=== PATIENT | female | born 1965 | race Caucasian/White ===

== ENCOUNTER 2017-10-22 21:59 | Inpatient (IN) | payer MEDICAID, OTHER ==
[~2017-10-22] VITALS: Ht 157.5 cm; Wt 88.9 kg
[~2017-10-22 21:59] MED LIST: DIPHTAB95 PO; DOCU-94 PO; FLUT250M2 IN; IBUP100S11 PO
[2017-10-22] MEDS ORDERED: SODIUM CHLORIDE 0.9% 1,000 ML IV ONE (22:34)
[2017-10-22] MEDS ORDERED: KETOROLAC TROMETH 30 MG/ML 1ML VIAL IM ONE (22:45)
[2017-10-22] MEDS ORDERED: ONDANSETRON HCL 4 MG/2 ML VIAL IV ONE (22:45)
[2017-10-22] MEDS ORDERED: MORPHINE SULFATE 4 MG/ML SYR/VIAL IV ONE (22:45)
[2017-10-22 23:02] LABS: Basophils # (auto) 0.1 uL; Basophils % (auto) 0.8 % (0.0-2.0); Eosinophils # (auto) 0 uL; Eosinophils % (auto) 0.1 % (0.0-7.0); Hematocrit 45.2 % (36.0-46.0); Hemoglobin 14.7 g/dL (12.2-16.2); Lymphocytes # (auto) 2.1 uL; Lymphocytes % (auto) 12.1 % (10.0-50.0); Mean Corpuscular Hemoglobin 30.4 pg (28.0-32.0); Mean Corpuscular Hgb Conc. 32.6 g/dL (32.0-36.0); Mean Corpuscular Volume 93.3 fL (80.0-100.0); Monocytes # (auto) 1.4 uL; Monocytes % (auto) 8.2 % (0.0-12.0); Neutrophils # (auto) 13.4 uL; Neutrophils % (auto) 78.8 % (37.0-80.0); Nucleated Red Blood Cells % 0.6 %; Platelet Count (auto) 264 10^3/uL (140-450); Red Blood Cells 4.85 10^6/uL (4.0-5.20); Red Cell Distribution Width 16.8 % (11.8-14.3); White Blood Cell 17.1 10^3/uL (4.4-10.8)
[2017-10-22 23:18] LABS: INR 0.99 (0.9-1.15); Partial Thromboplastin Time 31.4 sec (22.64-33.71); Prothrombin Time 10.8 sec (9.37-12.3)
[2017-10-22 23:23] LABS: Urine Bacteria FEW /hpf (None Seen); Urine Blood 1+ /uL (Negative); Urine Mucus FEW (None Seen); Urine Specific Gravity 1.007 (1.001-1.035); Urine WBC 159 /hpf (0 - 5); Urine WBC Clumps PRESENT /hpf (None Seen)
[2017-10-22 23:29] LABS: Albumin 3.2 g/dL (3.4-5.0); BUN/Creatinine Ratio 9.5; Bilirubin, Total 1.1 mg/dL (0.2-1.0); Calcium 8.9 mg/dL (8.5-10.1); Potassium 4.8 mmol/L (3.5-5.1); Total Protein 7.7 g/dL (6.4-8.2)
[2017-10-23] MEDS ORDERED: AZTREONAM 1GM INJ 1 GM in D5W 5% 50 ML IV ONE (01:15)
[2017-10-23] MEDS ORDERED: SODIUM CHLORIDE 0.9% 500 ML IV ONE (01:15)
[2017-10-23] MEDS ORDERED: CEFTRIAXONE SODIUM 2 GM in D5W 5% 50 ML IV ONE (01:15)
[2017-10-23] MEDS ORDERED: cefTRIAXone 1GM/10ml IVPUSH 10 ML IV ONE ×2 (03:18→03:19)
[2017-10-23] MEDS ORDERED: AZTREONAM 1 GM INJ VIAL ONE (03:29)
[2017-10-23] MEDS ORDERED: MEPERIDINE HCL (25 MG/ML) 1ML VIAL IV ONE (03:30)
[2017-10-23] MEDS ORDERED: MEPERIDINE HCL (50 MG/ML) 1 ML VIAL ONE (03:34)
[2017-10-23] MEDS ORDERED: TEMAZEPAM 15 MG CAP PO PRN (04:45)
[2017-10-23] MEDS ORDERED: MEPERIDINE HCL (25 MG/ML) 1ML VIAL IM PRN (04:45)
[2017-10-23] MEDS ORDERED: ACETAMINOPHEN 325 MG TAB PO PRN (04:45)
[2017-10-23] MEDS ORDERED: TAMSULOSIN HYDROCHLORIDE 0.4 MG CAP PO ONE (05:15)
[2017-10-23] MEDS: HYDROcodone-ACET 5/325MG TAB PO PRN (08:46)
[2017-10-23] MEDS: SODIUM CHLORIDE 0.9% 1,000 ML IV SCH ×2 (08:47→20:12)
[2017-10-23] MEDS: ENOXAPARIN SOD 30 MG/0.3 ML SYRINGE SC SCH (08:48)
[2017-10-23] MEDS: PANTOPRAZOLE 40 MG TAB PO SCH (08:48)
[2017-10-23 09:03] VITALS: BP 105/79
[2017-10-23] MEDS ORDERED: MANNITOL FTV 25% 12.5 GM/50 ML 50 ML IV SCH (09:30)
[2017-10-23] MEDS: METOPROLOL TARTRATE 25 MG TAB PO SCH ×2 (10:00→21:49)
[2017-10-23 11:51] VITALS: BP 119/73
[2017-10-23] MEDS ORDERED: KETOROLAC TROMETH 30 MG/ML 1ML VIAL IV ONE (12:45)
[2017-10-23] MEDS ORDERED: HYDROmorphone HCL 2 MG TAB PO ONE (13:15)
[2017-10-23] MEDS ORDERED: LEVOFLOXACIN 500MG 100 ML IV ONE (15:00)
[2017-10-23] MEDS ORDERED: MANNITOL FTV 25% 12.5 GM/50 ML 50 ML IV ONE (15:00)
[2017-10-23 17:52] VITALS: BP 121/74
[2017-10-23] MEDS: HYDROmorphone HCL 2 MG TAB PO PRN (18:45)
[2017-10-23 20:00] VITALS: BP 121/73
[2017-10-23 21:52] VITALS: BP 121/73
[2017-10-23] MEDS ORDERED: cefTRIAXone 1GM/10ml IVPUSH 10 ML IV SCH (22:00)
[2017-10-24] MEDS: HYDROmorphone HCL 2 MG TAB PO PRN (04:44)
[2017-10-24] MEDS: ONDANSETRON HCL 4 MG/2 ML VIAL IV PRN ×2 (04:45→09:22)
[2017-10-24 05:00] VITALS: BP 118/78
[2017-10-24] MEDS: SODIUM CHLORIDE 0.9% 1,000 ML IV SCH (05:21)
[2017-10-24 06:24] LABS: Basophils # (auto) 0.1 uL; Basophils % (auto) 0.6 % (0.0-2.0); Eosinophils # (auto) 0.2 uL; Eosinophils % (auto) 2.2 % (0.0-7.0); Hematocrit 40.9 % (36.0-46.0); Hemoglobin 13.5 g/dL (12.2-16.2); Lymphocytes # (auto) 1.5 uL; Lymphocytes % (auto) 14.2 % (10.0-50.0); Mean Corpuscular Hemoglobin 31.2 pg (28.0-32.0); Mean Corpuscular Volume 94.4 fL (80.0-100.0); Monocytes # (auto) 0.7 uL; Monocytes % (auto) 7.1 % (0.0-12.0); Neutrophils # (auto) 7.8 uL; Neutrophils % (auto) 75.9 % (37.0-80.0); Nucleated Red Blood Cells % 0.2 %; Platelet Count (auto) 201 10^3/uL (140-450); Red Blood Cells 4.33 10^6/uL (4.0-5.20); Red Cell Distribution Width 16.8 % (11.8-14.3); White Blood Cell 10.3 10^3/uL (4.4-10.8)
[2017-10-24 07:11] LABS: Albumin 2.9 g/dL (3.4-5.0); BUN/Creatinine Ratio 10.3; Bilirubin, Total 0.3 mg/dL (0.2-1.0); Calcium 8.7 mg/dL (8.5-10.1); Potassium 4.8 mmol/L (3.5-5.1); Total Protein 7.4 g/dL (6.4-8.2)
[2017-10-24 09:00] VITALS: BP 121/73
[2017-10-24] MEDS: PANTOPRAZOLE 40 MG TAB PO SCH (09:21)
[2017-10-24] MEDS: ENOXAPARIN SOD 30 MG/0.3 ML SYRINGE SC SCH (09:21)
[2017-10-24] MEDS: METOPROLOL TARTRATE 25 MG TAB PO SCH (09:22)
[2017-10-24] MEDS: HYDROcodone-ACET 5/325MG TAB PO PRN (09:22)
[2017-10-24] MEDS ORDERED: SODIUM CHLORIDE 0.9% 1,000 ML IV ONE (09:45)
[2017-10-24] MEDS ORDERED: MANNITOL 20 % (20GM/100ML) 62.5 ML IV ONE (10:00)
[2017-10-24] MEDS ORDERED: LEVOFLOXACIN 500MG 100 ML IV SCH (15:00)
== END 2017-10-24 14:35 | disposition home or self-care (01) | DRG 720 ==
LOC: ER 21:59 → EDBD 21:59 → OVERFLOW 22:00 → EDBD 22:00 → WEST WING 10-23 07:58
PROVIDERS: ADMIT Nurse Practitioner; ATTEND Family Medicine
DX: A41.9 Sepsis, unspecified organism (principal); N18.4 Chronic kidney disease, stage 4 (severe); I13.0 Hypertensive heart and chronic kidney disease with heart failure and stage 1 through stage 4 chronic kidney disease, or unspecified chronic kidney disease; I50.9 Heart failure, unspecified; N12 Tubulo-interstitial nephritis, not specified as acute or chronic; Z88.5 Allergy status to narcotic agent; E86.0 Dehydration; F17.210 Nicotine dependence, cigarettes, uncomplicated; F32.9 Major depressive disorder, single episode, unspecified; K57.30 Diverticulosis of large intestine without perforation or abscess without bleeding; Z96.89 Presence of other specified functional implants; G47.00 Insomnia, unspecified; N13.9 Obstructive and reflux uropathy, unspecified; N20.2 Calculus of kidney with calculus of ureter; Z90.5 Acquired absence of kidney; Z79.899 Other long term (current) drug therapy; N39.0 Urinary tract infection, site not specified
CPT/HCPCS: 36415; 74018; 74176; 80053; 81001; 82150; 83605; 83690; 84702; 85025; 85610; 85730; 87040; 87086; 96361; 96365; 96372; 96375; J0696; J1885; J1956; J2405; J7060

== ENCOUNTER 2018-12-13 07:54 | Inpatient (IN) | payer SELFPAY ==
[~2018-12-13] VITALS: Ht 157.5 cm; Wt 80.9 kg
[2018-12-13] MEDS ORDERED: ONDANSETRON HCL 4 MG/2 ML VIAL IV ONE (08:45)
[2018-12-13] MEDS ORDERED: SODIUM CHLORIDE 0.9% 1,000 ML IV ONE ×2 (08:45→13:30)
[2018-12-13] MEDS ORDERED: KETOROLAC TROMETH 30 MG/ML 1ML VIAL ONE (08:45)
[2018-12-13] MEDS ORDERED: KETOROLAC TROMETH 30 MG/ML 1ML VIAL IV ONE (08:45)
[2018-12-13] MEDS ORDERED: ONDANSETRON HCL 4 MG/2 ML VIAL ONE (08:45)
[2018-12-13 09:07] LABS: Red Blood Cells 4.86 10^6/uL (4.0-5.20); Red Cell Distribution Width 14.1 % (11.8-14.3)
[2018-12-13 09:09] LABS: Hematocrit 45.7 % (36.0-46.0); Hemoglobin 15.2 g/dL (12.2-16.2); Mean Corpuscular Hemoglobin 31.3 pg (28.0-32.0); Mean Corpuscular Hgb Conc. 33.3 g/dL (32.0-36.0); Platelet Count (auto) 317 10^3/uL (140-450)
[2018-12-13 09:18] LABS: Basophils % (manual) 0 (0.0-2.0); Blast Cells 0; Eosinophils % (manual) 0 (0-7); Metamyelocytes % 0; Myelocytes % 0; Promyelocytes % 0; Reactive Lymphocytes 0; White Blood Cell 33.3 10^3/uL (4.4-10.8)
[2018-12-13 09:25] LABS: Albumin 3.3 g/dL (3.4-5.0); BUN/Creatinine Ratio 9.2; Potassium 4.3 mmol/L (3.5-5.1)
[2018-12-13 09:28] LABS: Bilirubin, Total 0.9 mg/dL (0.2-1.0); Total Protein 7.9 g/dL (6.4-8.2)
[2018-12-13 09:36] LABS: Band Neutrophils % (manual) 4; Lymphocytes % (manual) 1 (10.0-50.0); Monocytes % (manual) 9 (0-12)
[2018-12-13] MEDS ORDERED: TAMSULOSIN HYDROCHLORIDE 0.4 MG CAP PO ONE (11:45)
[2018-12-13] MEDS ORDERED: DEXTROSE (50%) 50ML SYRG IV PRN (12:45)
[2018-12-13] MEDS ORDERED: ACETAMINOPHEN 500 MG TAB PO PRN (12:45)
[2018-12-13] MEDS ORDERED: NITROGLYCERIN 0.4 MG SL TAB SL PRN (12:45)
[2018-12-13] MEDS ORDERED: PIPERACILLIN-TAZOB 2.25GM 50 ML IV ONE (12:45)
[2018-12-13] MEDS: ONDANSETRON HCL 4 MG/2 ML VIAL IV PRN (13:37)
[2018-12-13] MEDS: HYDROmorphone HCL 2 MG/ML VL IV PRN ×2 (13:37→21:01)
[2018-12-13] MEDS: SODIUM CHLORIDE 0.9% 1,000 ML IV SCH ×2 (13:37→20:43)
[2018-12-13] MEDS ORDERED: LIDOCAINE 2%HCL (LOCAL ANESTH.) INJ 20ML MDV ONE (13:45)
[2018-12-13] MEDS ORDERED: IODIXANOL 320MG/ML 100ML BTL IV ONE (13:46)
[2018-12-13] MEDS: LINEZOLID 600MG/300ML 300 ML IV SCH ×2 (14:00→21:01)
[2018-12-13] MEDS ORDERED: fentaNYL CITRATE 100 MCG/2 ML VL ONE (14:26)
[2018-12-13] MEDS ORDERED: MIDAZOLAM HCL 1MG/1ML-2 ML VIAL ONE (14:27)
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
[2018-12-13 16:06] VITALS: BP 99/66
[2018-12-13] MEDS: ACCU-CHEK COMFORT CURVE STRIP VI SCH (17:35)
[2018-12-13] MEDS: PIPERACILLIN-TAZOB 2.25GM 50 ML IV SCH (17:47)
[2018-12-13] MEDS: traMADol HCL 50 MG TAB PO PRN (18:43)
[2018-12-13 19:01] LABS: INR 0.97 (0.9-1.15); Prothrombin Time 10.4 sec (9.27-12.13)
--- NOTE | 2018-12-13 19:13 | NUR ---
CLOSING SHIFT NOTE ENDORSED CARE TO LEAD SOFTWARE QA ENGINEER HUMBERTO ALEJANDRO. PATIENT HAS NO S/S OF DISTRESS/SOB OR PAIN AT THIS TIME.
--- NOTE | 2018-12-13 19:30 | NUR ---
Opening Shift Note Assumed care of patient, awake and alert. Significant other at bedside. No S/S of distress/SOB. Nephrostomy tube intact. Instructed on POC and to call for assist PRN, patient verbalized understanding, call light within reach, will continue to monitor for changes Q1hr and PRN.
[2018-12-13 20:00] VITALS: BP 107/71
--- NOTE | 2018-12-13 21:00 | NUR ---
IV insertion IV access obtained, via clean sterile technique by inserting 20 gauge catheter at RW. IV secured properly. No trauma to site. Patient tolerated well. NOTE: []
[2018-12-13 21:21] LABS: Urine Bacteria MOD /hpf (None Seen); Urine Blood 2+ /uL (Negative); Urine Mucus FEW (None Seen); Urine Specific Gravity 1.016 (1.001-1.035); Urine WBC 1916 /hpf (0 - 5); Urine WBC Clumps PRESENT /hpf (None Seen)
[2018-12-13 22:00] VITALS: BP 107/71
[2018-12-14] MEDS: PIPERACILLIN-TAZOB 2.25GM 50 ML IV SCH ×4 (00:21→14:49)
[2018-12-14] MEDS: ACCU-CHEK COMFORT CURVE STRIP VI SCH ×4 (00:22→18:00)
--- NOTE | 2018-12-14 00:25 | NUR ---
IV not flowing at this time, removed aseptically with catheter intact, patient tolerated well IV insertion IV access obtained, via clean sterile technique by inserting 22 gauge catheter at RFA. IV secured properly. No trauma to site. Patient tolerated well. NOTE: []
[2018-12-14] MEDS: HYDROmorphone HCL 2 MG/ML VL IV PRN ×5 (01:01→22:39)
[2018-12-14 05:00] VITALS: BP 113/76
[2018-12-14] MEDS: SODIUM CHLORIDE 0.9% 1,000 ML IV SCH ×3 (06:18→20:43)
[2018-12-14 06:42] LABS: Basophils # (auto) 0.1 uL; Basophils % (auto) 0.2 % (0.0-2.0); Eosinophils # (auto) 0 uL; Hematocrit 38.6 % (36.0-46.0); Hemoglobin 12.6 g/dL (12.2-16.2); Lymphocytes # (auto) 1.6 uL; Lymphocytes % (auto) 5.7 % (10.0-50.0); Mean Corpuscular Hemoglobin 30.6 pg (28.0-32.0); Mean Corpuscular Hgb Conc. 32.6 g/dL (32.0-36.0); Mean Corpuscular Volume 93.9 fL (80.0-100.0); Monocytes # (auto) 1.2 uL; Monocytes % (auto) 4.2 % (0.0-12.0); Neutrophils % (auto) 89.9 % (37.0-80.0); Nucleated Red Blood Cells % 0.1 %; Platelet Count (auto) 264 10^3/uL (140-450); Red Blood Cells 4.11 10^6/uL (4.0-5.20); Red Cell Distribution Width 14.1 % (11.8-14.3); White Blood Cell 27.8 10^3/uL (4.4-10.8)
[2018-12-14 07:04] LABS: Albumin 2.6 g/dL (3.4-5.0); Calcium 8.5 mg/dL (8.5-10.1); Potassium 4.2 mmol/L (3.5-5.1)
[2018-12-14 07:07] LABS: BUN/Creatinine Ratio 10.9; Bilirubin, Total 0.6 mg/dL (0.2-1.0); Total Protein 6.5 g/dL (6.4-8.2)
[2018-12-14 09:00] VITALS: BP 118/78
[2018-12-14] MEDS: PANTOPRAZOLE 40 MG TAB PO SCH (09:52)
[2018-12-14] MEDS: LINEZOLID 600MG/300ML 300 ML IV SCH ×2 (09:53→21:14)
[2018-12-14 13:00] VITALS: BP 110/69
[2018-12-14 17:00] VITALS: BP 104/51
--- NOTE | 2018-12-14 19:30 | NUR ---
Patient in bed alert and oriented x 4, verbally coherent, able to make needs known. Patient complained of moderate pain to insertion site to left flank. Dilaudid medication given from prior shift. Provided patient with warm compress and will administer breakthrough pain medication as ordered. Plan of care discussed, patient verbalized understanding. All needs attended, will continue to monitor.
[2018-12-14] MEDS: traMADol HCL 50 MG TAB PO PRN (19:47)
[2018-12-14 20:00] VITALS: BP 111/67
--- NOTE | 2018-12-14 20:19 | NUR ---
Patient went down to smoke. Patient aware of hospital policy for AMA to smoke. ALAN made aware.
--- NOTE | 2018-12-14 20:28 | NUR ---
Patient back in room in stable condition.
[2018-12-14] MEDS: TEMAZEPAM 15 MG CAP PO PRN (21:15)
[2018-12-14 22:00] VITALS: BP 111/67
[2018-12-14] MEDS: PROMETHAZINE HCL 25 MG/ML 1ML IV PRN (22:39)
[2018-12-15] MEDS: PIPERACILLIN-TAZOB 2.25GM 50 ML IV SCH ×4 (00:08→18:31)
--- NOTE | 2018-12-15 00:30 | NUR ---
Continuation of Care Assumed care of patient from Cecilia PAUL for continuation of care. Patient lying in bed, eyes closed, respirations even and unlabored, appears asleep. No S/S of distress/SOB. Nephrostomy tube site noted to be clean, dry, intact, and patent. Instructed on POC and to call for assist PRN, patient verbalized understanding. Bed in lowest locked position, side rails up x2, call light within reach. Will continue to monitor for changes Q1hr and PRN.
[2018-12-15] MEDS: HYDROmorphone HCL 2 MG/ML VL IV PRN ×7 (03:10→23:09)
[2018-12-15 04:47] VITALS: BP 104/64
[2018-12-15] MEDS: SODIUM CHLORIDE 0.9% 1,000 ML IV SCH ×3 (05:04→20:43)
[2018-12-15] MEDS: ACCU-CHEK COMFORT CURVE STRIP VI SCH ×2 (05:50)
[2018-12-15 06:05] LABS: Basophils # (auto) 0.1 uL; Basophils % (auto) 0.4 % (0.0-2.0); Eosinophils # (auto) 0.1 uL; Hematocrit 36.4 % (36.0-46.0); Lymphocytes # (auto) 1.6 uL; Lymphocytes % (auto) 10.6 % (10.0-50.0); Mean Corpuscular Hemoglobin 30.8 pg (28.0-32.0); Mean Corpuscular Volume 93.5 fL (80.0-100.0); Monocytes # (auto) 0.8 uL; Monocytes % (auto) 5.4 % (0.0-12.0); Neutrophils # (auto) 12.6 uL; Neutrophils % (auto) 82.6 % (37.0-80.0); Nucleated Red Blood Cells % 0.1 %; Platelet Count (auto) 234 10^3/uL (140-450); Red Blood Cells 3.89 10^6/uL (4.0-5.20); Red Cell Distribution Width 14.1 % (11.8-14.3); White Blood Cell 15.3 10^3/uL (4.4-10.8)
[2018-12-15 06:23] LABS: Albumin 2.4 g/dL (3.4-5.0); Calcium 7.9 mg/dL (8.5-10.1); Potassium 3.8 mmol/L (3.5-5.1)
[2018-12-15 06:27] LABS: BUN/Creatinine Ratio 11.1; Bilirubin, Total 0.4 mg/dL (0.2-1.0); Total Protein 6.4 g/dL (6.4-8.2)
--- NOTE | 2018-12-15 06:52 | NUR ---
Closing Note Patient lying in bed, eyes closed, respirations even and unlabored, appears asleep. No s/s of distress. Bed in lowest locked position, side rails up x2, call light within reach. Care endorsed to dayshift RN.
--- NOTE | 2018-12-15 08:00 | NUR ---
Urine sent as ordered
[2018-12-15 09:00] VITALS: BP 92/59
--- NOTE | 2018-12-15 09:21 | NUR ---
Hospitalist at bedside Simpson at bedside aware of patient's status. Awaiting new orders, awaiting urine culture results at this time. Cont care
[2018-12-15] MEDS: PANTOPRAZOLE 40 MG TAB PO SCH (09:41)
[2018-12-15] MEDS: LINEZOLID 600MG/300ML 300 ML IV SCH ×2 (09:42→21:19)
--- NOTE | 2018-12-15 12:21 | NUR ---
PATIENT OUT TO SMOKE PATIENT STATES SHE'S GOING OUT TO SMOKE A CIGARETTE. ENCOURAGED TO STAY AND QUIT SMOKING BUT REFUSED. NO DISTRESS NOTED ON DEPARTURE
[2018-12-15 13:07] VITALS: BP 109/71
--- NOTE | 2018-12-15 14:19 | NUR ---
Urologist at bedside MD Gallego at bedside, aware of patient's status including pt c/o pain to nephrostomy site. MD assessed site at bedside. New orders received to change frequency of dilaudid to Q2hr prn. Per MD Gallego, pt is well known to him and patient ordered dose is "safe" and pt can tolerate it. POC discussed with patient and pt's at bedside by . Cont care
[2018-12-15] MEDS: PROMETHAZINE HCL 25 MG/ML 1ML IV PRN ×3 (15:29→23:10)
[2018-12-15 17:00] VITALS: BP 121/74
[2018-12-15 20:00] VITALS: BP 102/64
--- NOTE | 2018-12-15 20:39 | NUR ---
Opening shift note Patient in bed alert and oriented x 4, verbally coherent able to make needs known. Patient denies pain and discomfort at this time. Plan of care discussed, patient verbalized understanding. All needs attended, will continue to monitor.
[2018-12-15 22:00] VITALS: BP 102/64
[2018-12-15] MEDS: TEMAZEPAM 15 MG CAP PO PRN (23:58)
[2018-12-16] MEDS: PIPERACILLIN-TAZOB 2.25GM 50 ML IV SCH ×4 (00:52→18:13)
[2018-12-16] MEDS: PROMETHAZINE HCL 25 MG/ML 1ML IV PRN ×4 (03:20→19:55)
[2018-12-16] MEDS: HYDROmorphone HCL 2 MG/ML VL IV PRN ×8 (03:21→22:05)
[2018-12-16] MEDS: SODIUM CHLORIDE 0.9% 1,000 ML IV SCH ×3 (04:43→20:43)
[2018-12-16 05:00] VITALS: BP 98/61
[2018-12-16 07:03] LABS: Basophils # (auto) 0.1 uL; Basophils % (auto) 0.7 % (0.0-2.0); Eosinophils # (auto) 0.3 uL; Hematocrit 39.9 % (36.0-46.0); Hemoglobin 13.1 g/dL (12.2-16.2); Lymphocytes # (auto) 1.6 uL; Lymphocytes % (auto) 15.8 % (10.0-50.0); Mean Corpuscular Hemoglobin 31.1 pg (28.0-32.0); Mean Corpuscular Hgb Conc. 32.8 g/dL (32.0-36.0); Mean Corpuscular Volume 94.9 fL (80.0-100.0); Monocytes # (auto) 0.7 uL; Monocytes % (auto) 6.6 % (0.0-12.0); Neutrophils # (auto) 7.5 uL; Neutrophils % (auto) 73.9 % (37.0-80.0); Nucleated Red Blood Cells % 0.2 %; Platelet Count (auto) 265 10^3/uL (140-450); Red Blood Cells 4.21 10^6/uL (4.0-5.20); Red Cell Distribution Width 14.3 % (11.8-14.3); White Blood Cell 10.1 10^3/uL (4.4-10.8)
[2018-12-16 07:24] LABS: Albumin 2.5 g/dL (3.4-5.0); Calcium 8.1 mg/dL (8.5-10.1); Potassium 3.9 mmol/L (3.5-5.1)
[2018-12-16 07:28] LABS: BUN/Creatinine Ratio 10.6; Bilirubin, Total 0.3 mg/dL (0.2-1.0); Total Protein 6.7 g/dL (6.4-8.2)
--- NOTE | 2018-12-16 08:49 | NUR ---
Positive culture per Renay in micro, pt is positive with gram negative cocco bacilli. MD Simpson made aware, awaiting new orders at this time.
[2018-12-16 09:00] VITALS: BP 106/62
--- NOTE | 2018-12-16 09:23 | NUR ---
Hospitalist at bedside Kori Handy at bedside, aware of patient's status including pt c/o pain and medications. MD aware of positive culture. Awaiting culture and sensitivity at this time. Cont care
[2018-12-16] MEDS: PANTOPRAZOLE 40 MG TAB PO SCH (10:13)
[2018-12-16] MEDS: LINEZOLID 600MG/300ML 300 ML IV SCH ×2 (10:23→21:23)
--- NOTE | 2018-12-16 12:34 | NUR ---
Uro at bedside urologist Dr Gallego at bedside, aware of patients status including patient's c/o pain to nephrostomy site. MD aware of positive culture results. Per MD cont pain meds as ordered. Cont care
--- NOTE | 2018-12-16 12:42 | NUR ---
Patient out to smoke pt encouraged to stay and quit smoking but refused. Pt disconnected from IV and instructed her of the risks for not continuing iv meds and abx as ordered but she refused to stay and quit smoking. No distress noted on departure. walking down with patient
[2018-12-16 13:00] VITALS: BP 140/74
--- NOTE | 2018-12-16 13:06 | NUR ---
Patient back from smoking pt connected back to IV as ordered. Cont care
[2018-12-16 17:00] VITALS: BP 141/72
--- NOTE | 2018-12-16 18:57 | NUR ---
Patient care endorsed endorsed care to Cecilia knowles. Patient laying in bed with eyes closed, breathing non labored. No s/s of acute distress or sob noted. Call light within reach.
--- NOTE | 2018-12-16 19:30 | NUR ---
Opening shift note Patient asleep in bed. Patient's respiration even and unlabored, no non verbal cues to pain noted and observed. Will continue to monitor.
[2018-12-16 20:00] VITALS: BP 104/60
--- NOTE | 2018-12-16 20:08 | NUR ---
Pt off unit. AMA to smoke.
--- NOTE | 2018-12-16 20:19 | NUR ---
Patient back in room from smoking. Addendum: 12/16/18 at 2259 by Roshni Garnica RN Patient in stable condition.
--- NOTE | 2018-12-16 22:50 | NUR ---
Emptied 400 mls of pale yellow urine with sediments from nephrostomy drainage bag.
[2018-12-16 23:43] VITALS: BP 104/60
[2018-12-17] MEDS: PIPERACILLIN-TAZOB 2.25GM 50 ML IV SCH ×2 (00:16→05:15)
[2018-12-17] MEDS: HYDROmorphone HCL 2 MG/ML VL IV PRN ×7 (01:01→21:36)
--- NOTE | 2018-12-17 04:21 | NUR ---
Patient off unit. AMA to smoke.
--- NOTE | 2018-12-17 04:35 | NUR ---
Patient back to room from smoking.
[2018-12-17] MEDS: SODIUM CHLORIDE 0.9% 1,000 ML IV SCH ×3 (05:15→20:43)
[2018-12-17 05:30] VITALS: BP 119/81
--- NOTE | 2018-12-17 06:41 | NUR ---
Patient off unit with AMA to smoke.
[2018-12-17 06:49] LABS: Hematocrit 39.5 % (36.0-46.0); Hemoglobin 12.9 g/dL (12.2-16.2); Mean Corpuscular Hgb Conc. 32.8 g/dL (32.0-36.0); Mean Corpuscular Volume 94.6 fL (80.0-100.0); Platelet Count (auto) 256 10^3/uL (140-450); Red Blood Cells 4.18 10^6/uL (4.0-5.20); Red Cell Distribution Width 14.4 % (11.8-14.3); White Blood Cell 9.5 10^3/uL (4.4-10.8)
[2018-12-17 06:51] LABS: Basophils % (manual) 0 (0.0-2.0); Blast Cells 0; Metamyelocytes % 0; Myelocytes % 0; Promyelocytes % 0; Reactive Lymphocytes 0
[2018-12-17 06:55] LABS: Albumin 2.5 g/dL (3.4-5.0); BUN/Creatinine Ratio 9.6; Calcium 8.2 mg/dL (8.5-10.1)
[2018-12-17 06:57] LABS: Bilirubin, Total 0.3 mg/dL (0.2-1.0); Total Protein 6.6 g/dL (6.4-8.2)
--- NOTE | 2018-12-17 07:15 | NUR ---
Opening Note Received report from cook night RN. Patient is awake, alert and oriented x4. No signs or symptoms of distress noted at this time. Patient states left flank pain 8/10 and is requesting pain medications. Will medicate per orders. Reviewed plan of care with patient, patient verbalized understanding. Bed in low and locked position, call light within reach. Will continue to monitor Q1 hour and PRN.
[2018-12-17 07:33] LABS: Band Neutrophils % (manual) 3; Eosinophils % (manual) 5 (0-7); Lymphocytes % (manual) 17 (10.0-50.0); Monocytes % (manual) 6 (0-12)
[2018-12-17 08:38] VITALS: BP 138/87
[2018-12-17] MEDS: PANTOPRAZOLE 40 MG TAB PO SCH (09:28)
[2018-12-17] MEDS: LINEZOLID 600MG/300ML 300 ML IV SCH (09:28)
--- NOTE | 2018-12-17 10:47 | NUR ---
Dr. Deisy Simpson at bedside Dr. Deisy Simpson at bedside reviewing plan of care with patient
[2018-12-17] MEDS ORDERED: cefTRIAXone 1GM/50ML D5W 50 ML IV ONE (11:00)
--- NOTE | 2018-12-17 13:00 | NUR ---
IV REMOVED IV removed with sterile technique, catheter fully intact. Pressure dressing applied to site. Patient tolerated procedure well.
[2018-12-17 13:05] VITALS: BP 126/83
--- NOTE | 2018-12-17 13:30 | NUR ---
IV insertion IV access obtained, via clean sterile technique by inserting 22 gauge catheter in the right forearm after one attempt. IV secured properly. No trauma to site. Patient tolerated procedure well.
[2018-12-17] MEDS ORDERED: LEVOFLOXACIN 500MG 100 ML IV ONE (13:45)
--- NOTE | 2018-12-17 14:25 | NUR ---
Nutrition Assessment Notes please see attached link for complete assessment Est. Needs ABW 66 [id number] (20-23 kcal/kgBW), 66-72 gms pro (1.0-1.1 gms/kgBW). Will continue to monitor pertinent labs and reassess nutrient need prn. Addendum: 12/17/18 at [address] Amended: Links added.
[2018-12-17 17:05] VITALS: BP 115/71
--- NOTE | 2018-12-17 18:55 | NUR ---
600ml emptied from nephrostomy tube
--- NOTE | 2018-12-17 19:15 | NUR ---
Closing Note Report given to nightman RN. Patient is awake, alert and oriented x4. No signs or symptoms of distress noted at this time
--- NOTE | 2018-12-17 20:30 | NUR ---
PATIENT OUT TO SMOKE Patient off unit to smoke. AMA signed and placed in hard chart. No S/S of distress/SOB noted on departure.
--- NOTE | 2018-12-17 20:40 | NUR ---
PATIENT BACK IN BED Patient back on unit. Patient is laying in bed with symmetrical chest rise and fall. No S/S of distress/SOB noted. Bed is locked in lowest position, side rails x 2 are up, and call light is within reach.
--- NOTE | 2018-12-17 20:50 | NUR ---
IV REMOVAL IV to right lower forearm DC'd with clean sterile technique, catheter fully intact. Pressure dressing applied to site. Patient tolerated well.
--- NOTE | 2018-12-17 20:55 | NUR ---
IV Insertion IV access obtained, via clean sterile technique by inserting 22 gauge catheter at right forearm after 2 attempts. IV secured properly. IV flushing well with no resistance. Patient denies pain/burning sensation at the site. Patient educated to call if IV site starts to burn/feel painful, patient verbalized understanding.
[2018-12-17 21:00] VITALS: BP 130/74
[2018-12-17] MEDS: TEMAZEPAM 15 MG CAP PO PRN (21:06)
--- NOTE | 2018-12-18 01:01 | NUR ---
ROUNDS Patient sleeping in bed with symmetrical chest rise and fall. No S/S of distress/SOB noted. Bed is locked in lowest position, side rails x 2 are up, and call light is within reach.
[2018-12-18 02:40] VITALS: BP 112/97
[2018-12-18] MEDS: HYDROmorphone HCL 2 MG/ML VL IV PRN ×3 (02:42→11:45)
[2018-12-18 05:00] VITALS: BP 142/80
[2018-12-18] MEDS: SODIUM CHLORIDE 0.9% 1,000 ML IV SCH ×2 (05:30→09:39)
[2018-12-18 06:38] LABS: BUN/Creatinine Ratio 11.7; Calcium 8.1 mg/dL (8.5-10.1)
--- NOTE | 2018-12-18 06:56 | NUR ---
PATIENT OFF UNIT SMOKING Patient off unit smoking. AMA is in hard chart. Educated patient on smoking cessation and fall precautions, patient verbalized understanding. No S/S of distress noted upon departure.
--- NOTE | 2018-12-18 07:01 | NUR ---
NEPHROSTOMY TUBE OUTPUT Total nephrostomy tube output from 12-17-18 1900 to 12-18-18 07 is 1525 clear yellow fluid.
--- NOTE | 2018-12-18 07:13 | NUR ---
CLOSING SHIFT NOTE Endorsed patient care to Harriet Lew RN.
--- NOTE | 2018-12-18 07:20 | NUR ---
PATIENT OFF UNIT TO SMOKE SIGNED AMA IN CHART
[2018-12-18 07:21] LABS: Hematocrit 39.7 % (36.0-46.0); Mean Corpuscular Hemoglobin 30.6 pg (28.0-32.0); Mean Corpuscular Hgb Conc. 32.8 g/dL (32.0-36.0); Mean Corpuscular Volume 93.3 fL (80.0-100.0); Platelet Count (auto) 324 10^3/uL (140-450); Red Blood Cells 4.26 10^6/uL (4.0-5.20); Red Cell Distribution Width 13.9 % (11.8-14.3)
[2018-12-18 07:25] LABS: Band Neutrophils % (manual) 0; Basophils % (manual) 0 (0.0-2.0); Blast Cells 0; Metamyelocytes % 0; Myelocytes % 0; Promyelocytes % 0; Reactive Lymphocytes 0
--- NOTE | 2018-12-18 07:40 | NUR ---
PATIENT BACK ON UNIT PATIENT ALERT AND ORIENTED X4. RESPIRATIONS EVEN AND UNLABORED. PATIENT C/O NAUSEA. WILL MEDICATE PER EMAR/ M.D. ORDERS. DISCUSSED POC WITH PATIENT. PATIENT VERBALIZED UNDERSTANDING. PATIENT HAS A LEFT NEPHROSTOMY, PATENT AND DRAINING. DRESSING CLEAN, DRY, AND INTACT. BED IS IN LOWEST POSITION, SIDE RAILS UP X2, AND CALL LIGHT WITHIN REACH. WILL CONTINUE TO MONITOR Q1 HOUR AND PRN.
[2018-12-18] MEDS: ONDANSETRON HCL 4 MG/2 ML VIAL IV PRN (07:48)
[2018-12-18 08:13] VITALS: BP 126/83
[2018-12-18 08:15] LABS: Eosinophils % (manual) 3 (0-7); Lymphocytes % (manual) 14 (10.0-50.0); Monocytes % (manual) 7 (0-12)
--- NOTE | 2018-12-18 08:15 | NUR ---
PATIENT WANTS TO SMOKE EDUCATED PATIENT THAT PATIENT SHOULD STAY IN BED DUE TO RECENT C/O OF BEING DIZZY. PATIENT STATES, "I'M FINE NOW. UNHOOK ME. I'M GOING DOWN TO SMOKE. " EXPLAINED RISK FACTORS TO PATIENT. PATIENT VERBALIZED UNDERSTANDING.
--- NOTE | 2018-12-18 08:19 | NUR ---
PATIENT OFF UNIT PATIENT WENT DOWN STAIRS TO SMOKE SIGNED AMA IN CHART
[2018-12-18] MEDS ORDERED: cefTRIAXone 1GM/50ML D5W 50 ML IV SCH (09:00)
[2018-12-18] MEDS: PANTOPRAZOLE 40 MG TAB PO SCH (09:39)
[2018-12-18] MEDS ORDERED: LEVOFLOXACIN 500MG 100 ML IV SCH (10:00)
[2018-12-18] MEDS ORDERED: LEVOFLOXACIN 250MG 50 ML IV SCH (10:00)
--- NOTE | 2018-12-18 11:15 | NUR ---
PATIENT REFUSES TELE PATIENT ANTICIPATES BEING DISCHARGED TODAY. SAYS, "IM NOT WEARING THIS ANYMORE." PATIENT EDUCATED ON RISK FACTORS OF REMOVAL OF TELE BOX AND PURPOSE OF TELE MONITORING. PATIENT VERBALIZED UNDERSTANDING, CONTINUED REFUSAL
[2018-12-18 12:09] VITALS: BP 151/80
--- NOTE | 2018-12-18 12:14 | NUR ---
DR. WELSH AT BEDSIDE Rachelle DISCUSSING POC WITH PATIENT. PATIENT VERBALIZED UNDERSTANDING. Rachelle CONTACTED DR. DICKERSON FOR A NEPHROLOGY CONSULT DEPENDING ON DR. DICKERSON'S RECOMMENDATION, PATIENT MAY BE DISCHARGED TODAY WILL AWAIT Rachelle CONSULT Addendum: 12/18/18 at 1305 by Harriet Grayson RN Rachelle MADE AWARE OF TELE REMOVAL/ REFUSAL
[2018-12-18 12:27] VITALS: BP 151/80
[2018-12-18] MEDS ORDERED: CEFTRIAXONE SODIUM 2 GM in D5W 5% 50 ML IV ONE (12:30)
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
--- NOTE | 2018-12-18 12:40 | NUR ---
DR. JAYLA Lopez HAS CLEARED PATIENT FOR DISCHARGE PATIENT ENCOURAGED TO FOLLOW UP WITH Rachelle IN TWO WEEKS
--- NOTE | 2018-12-18 12:41 | NUR ---
CALLED PHARMACY ROCEPHIN 2 GRAMS TO BE GIVEN TO PATIENT BEFORE D/C PHARMACY MUST SEND MEDICATION UP CALLED AND SPOKE TO BETZY. UPDATED BETZY ON PATIENT STATUS BETZY STATED MEDICATION WOULD BE SENT UP SOON POSSIBLE
[2018-12-18] MEDS: SODIUM BICARBONATE 650 MG TAB PO SCH ×2 (12:45→14:00)
--- NOTE | 2018-12-18 15:45 | NUR ---
PRESCRIPTIONS TAKEN TO [facility] PATIENT INSTRUCTED TO INDUSTRIAL ANALYST PRESCRIPTIONS UPON DISCHARGE PATIENT VERBALIZED UNDERSTANDING
--- NOTE | 2018-12-18 15:48 | NUR ---
DISCHARGE Discharge instructions given as ordered. Encourage to follow up with PCP as instructed and to make an appointment with Dr. Gallego. Appointment with Dr. Mendez made. All questions and concerns addressed. Patient verbalized understanding. IV removed with catheter intact, pressure dressing applied. Telemetry unit returned to ALAN. Patient taken to vehicle via wheelchair with all personal belongings, accompanied by staff and family member. No distress noted at time of departure.
== END 2018-12-18 16:00 | disposition home or self-care (01) | DRG 872 ==
LOC: EDBD 07:54 → ER 07:54 → TELE 12:54 → TELE-EAST 17:07
PROVIDERS: ADMIT Internal Medicine; ATTEND Family Medicine
PROC: 0T9130Z Drainage of Left Kidney with Drainage Device, Percutaneous Approach (ICD-10-PCS; principal; 2018-12-13)
PROC: BT1F1ZZ Fluoroscopy of Left Kidney, Ureter and Bladder using Low Osmolar Contrast (ICD-10-PCS; 2018-12-13)
DX: A41.01 Sepsis due to Methicillin susceptible Staphylococcus aureus (principal); N17.9 Acute kidney failure, unspecified; N13.6 Pyonephrosis; I42.2 Other hypertrophic cardiomyopathy; E87.2 Acidosis; I13.0 Hypertensive heart and chronic kidney disease with heart failure and stage 1 through stage 4 chronic kidney disease, or unspecified chronic kidney disease; I42.1 Obstructive hypertrophic cardiomyopathy; N18.9 Chronic kidney disease, unspecified; K57.90 Diverticulosis of intestine, part unspecified, without perforation or abscess without bleeding; E83.59 Other disorders of calcium metabolism; I50.9 Heart failure, unspecified; N29 Other disorders of kidney and ureter in diseases classified elsewhere; J44.9 Chronic obstructive pulmonary disease, unspecified; E11.22 Type 2 diabetes mellitus with diabetic chronic kidney disease; F17.210 Nicotine dependence, cigarettes, uncomplicated; F32.9 Major depressive disorder, single episode, unspecified; Z82.49 Family history of ischemic heart disease and other diseases of the circulatory system; Z87.442 Personal history of urinary calculi; Z90.5 Acquired absence of kidney; Z91.19 Patient's noncompliance with other medical treatment and regimen; Z93.6 Other artificial openings of urinary tract status; Z88.6 Allergy status to analgesic agent
CPT/HCPCS: 36415; 71045; 74176; 74425; 76942; 80048; 80053; 81001; 82962; 83036; 85007; 85025; 85027; 85610; 85652; 87040; 87086; 87088; 87186; 93005; 96361; 96374; 96375; 99152; A6257; C1729; G0378; J0696; J1885; J1956; J2250; J2405; J2543; J7060; Q9967

== ENCOUNTER 2020-12-03 16:00 | Inpatient (IN) | payer MEDICAID ==
[~2020-12-03] VITALS: Ht 165.1 cm; Wt 87.6 kg
[2020-12-03] MEDS ORDERED: cefTRIAXone 1GM/50ML D5W 50 ML IV ONE (16:15)
[2020-12-03] MEDS ORDERED: SODIUM CHLORIDE 0.9% 1,000 ML IV ONE (16:15)
[2020-12-03 17:16] LABS: Eosinophils # (auto) 0 10 ^3/uL (0-0.8); Mean Corpuscular Volume 91.2 fL (80.0-100.0); Monocytes # (auto) 2.1 10 ^3/uL (0-1.3); Neutrophils # (auto) 16.8 10 ^3/uL (1.6-8.6); Nucleated Red Blood Cells % 0.6 %
[2020-12-03 17:20] LABS: Urine Bacteria NONE SEEN /hpf (None Seen); Urine Blood 1+ /uL (Negative); Urine Specific Gravity 1.006 (1.001-1.035); Urine WBC 110 /hpf (0 - 5)
[2020-12-03 17:24] LABS: Basophils # (auto) 0 10 ^3/uL (0-0.2); Basophils % (auto) 0.2 % (0.0-2.0); Eosinophils % (auto) 0.1 % (0.0-7.0); Hematocrit 39.9 % (36.0-46.0); Lymphocytes # (auto) 1.8 10 ^3/uL (0.4-5.4); Lymphocytes % (auto) 8.8 % (10.0-50.0); Mean Corpuscular Hemoglobin 29.6 pg (28.0-32.0); Mean Corpuscular Hgb Conc. 32.4 g/dL (32.0-36.0); Monocytes % (auto) 10.2 % (0.0-12.0); Neutrophils % (auto) 80.7 % (37.0-80.0); Red Blood Cells 4.38 10^6/uL (4.0-5.20); Red Cell Distribution Width 17.9 % (11.8-14.3); White Blood Cell 20.8 10^3/uL (4.4-10.8)
[2020-12-03] MEDS ORDERED: ACETAMINOPHEN 500 MG TAB PO ONE (17:30)
[2020-12-03 17:33] LABS: Alanine Aminotransferase 25 U/L (13-56); Albumin 3.1 g/dL (3.4-5.0); Anion Gap 10 (5-15); Aspartate Aminotransferase 15 U/L (15-37); BUN/Creatinine Ratio 10.1; Blood Urea Nitrogen 30 mg/dL (7-18); Calcium 8.6 mg/dL (8.5-10.1); Carbon Dioxide 15 mmol/L (21-32); Chloride 109 mmol/L (98-107); GFR African American 21 mL/min; GFR Non-African American 18 mL/min; Glucose 88 mg/dL (74-106); Sodium 134 mmol/L (136-145)
[2020-12-03 17:37] LABS: Alkaline Phosphatase 154 U/L (45-117); Bilirubin, Total 0.6 mg/dL (0.2-1.0); Total Protein 8.4 g/dL (6.4-8.2)
[2020-12-03] MEDS ORDERED: MEPERIDINE HCL (50 MG/ML) 1 ML VIAL IV PRN (18:15)
[2020-12-03] MEDS ORDERED: MORPHINE SULFATE INJECTION 2 MG/ML SYRG IV PRN ×2 (18:15→18:45)
[2020-12-03] MEDS ORDERED: ONDANSETRON HCL 4 MG/2 ML VIAL IV PRN (18:15)
[2020-12-03] MEDS ORDERED: NITROGLYCERIN 0.4 MG SL TAB SL PRN (18:15)
[2020-12-03] MEDS ORDERED: MEPERIDINE HCL (25 MG/ML) 1ML VIAL IV PRN (18:15)
[2020-12-03] MEDS ORDERED: MORPHINE SULFATE 4 MG/ML SYR/VIAL IV PRN (18:45)
[2020-12-03] MEDS ORDERED: amLODIPine BESYLATE 5 MG TAB PO ONE (21:15)
[2020-12-03] MEDS ORDERED: SODIUM CHLORIDE 0.9% 1,000 ML IV SCH (21:15)
[2020-12-03] MEDS ORDERED: hydrALAZINE HCL 20 MG/ML VL IV PRN (21:15)
[2020-12-03] MEDS ORDERED: DOCUSATE SOD 100 MG CAP PO PRN (21:15)
[2020-12-03] MEDS ORDERED: TEMAZEPAM 15 MG CAP PO PRN (21:15)
[2020-12-03 22:00] VITALS: BP 119/69
[2020-12-03] MEDS ORDERED: FAMOTIDINE 20 MG TAB PO SCH (22:00)
[2020-12-03 22:55] VITALS: BP 119/69
[2020-12-04] MEDS: ACETAMINOPHEN 325 MG TAB PO PRN ×2 (04:36→21:23)
[2020-12-04 05:00] VITALS: BP 153/89
[2020-12-04 05:44] LABS: Basophils # (auto) 0.1 10 ^3/uL (0-0.2); Basophils % (auto) 0.5 % (0.0-2.0); Eosinophils # (auto) 0 10 ^3/uL (0-0.8); Eosinophils % (auto) 0.1 % (0.0-7.0); Hematocrit 39.5 % (36.0-46.0); Hemoglobin 13.1 g/dL (12.2-16.2); Lymphocytes # (auto) 1.3 10 ^3/uL (0.4-5.4); Lymphocytes % (auto) 5.5 % (10.0-50.0); Mean Corpuscular Hemoglobin 30.2 pg (28.0-32.0); Mean Corpuscular Hgb Conc. 33.1 g/dL (32.0-36.0); Monocytes # (auto) 2.3 10 ^3/uL (0-1.3); Monocytes % (auto) 10.1 % (0.0-12.0); Neutrophils # (auto) 19.4 10 ^3/uL (1.6-8.6); Neutrophils % (auto) 83.8 % (37.0-80.0); Nucleated Red Blood Cells % 0.5 %; Red Blood Cells 4.34 10^6/uL (4.0-5.20); White Blood Cell 23.1 10^3/uL (4.4-10.8)
[2020-12-04 06:05] LABS: Potassium 4.2 mmol/L (3.5-5.1)
[2020-12-04 06:13] LABS: BUN/Creatinine Ratio 9.8; Bilirubin, Total 0.6 mg/dL (0.2-1.0); Calcium 8.8 mg/dL (8.5-10.1); Magnesium 2.6 mg/dL (1.6-2.6); Total Protein 8.4 g/dL (6.4-8.2)
[2020-12-04 09:00] VITALS: BP 118/77
[2020-12-04] MEDS ORDERED: cefTRIAXone 1GM/50ML D5W 50 ML IV SCH (09:00)
[2020-12-04] MEDS: MEROPENEM 500MG IVPB 50 ML IV SCH ×2 (09:08→21:24)
[2020-12-04] MEDS: amLODIPine BESYLATE 5 MG TAB PO SCH (09:09)
[2020-12-04] MEDS: FAMOTIDINE 20 MG TAB PO SCH (09:09)
[2020-12-04 13:00] VITALS: BP 139/74
[2020-12-04] MEDS: KETOROLAC TROMETH 30 MG/ML 1ML VIAL IV ONE ×2 (13:52→14:15)
[2020-12-04 17:14] VITALS: BP 108/62
[2020-12-04] MEDS: SODIUM BICARBONATE 50ML VIAL 75 ML in SOD CHL 0.45% 1,000 ML IV SCH (19:48)
[2020-12-04 20:00] VITALS: BP 118/77
[2020-12-04] MEDS: MORPHINE SULFATE 4 MG/ML SYR/VIAL IV PRN (21:24)
[2020-12-04] MEDS: SODIUM BICARBONATE 650 MG TAB PO SCH (21:24)
[2020-12-04 22:00] VITALS: BP 109/70
[2020-12-05 05:00] VITALS: BP 102/64
[2020-12-05 08:34] VITALS: BP 104/72
[2020-12-05] MEDS: FAMOTIDINE 20 MG TAB PO SCH (08:51)
[2020-12-05] MEDS: amLODIPine BESYLATE 5 MG TAB PO SCH (08:54)
[2020-12-05] MEDS: SODIUM BICARBONATE 650 MG TAB PO SCH ×2 (08:54→21:09)
[2020-12-05] MEDS: MEROPENEM 500MG IVPB 50 ML IV SCH ×2 (08:55→21:08)
[2020-12-05] MEDS: ACETAMINOPHEN 325 MG TAB PO PRN (08:55)
[2020-12-05] MEDS: MORPHINE SULFATE 4 MG/ML SYR/VIAL IV PRN ×2 (08:55→19:57)
[2020-12-05 12:34] VITALS: BP 115/72
[2020-12-05 16:34] VITALS: BP 107/75
[2020-12-05] MEDS: SODIUM BICARBONATE 50ML VIAL 75 ML in SOD CHL 0.45% 1,000 ML IV SCH (19:35)
[2020-12-05 22:00] VITALS: BP 96/60
[2020-12-06] MEDS: MORPHINE SULFATE 4 MG/ML SYR/VIAL IV PRN ×4 (02:24→22:03)
[2020-12-06 05:00] VITALS: BP 103/61
[2020-12-06 07:00] LABS: Calcium 8.3 mg/dL (8.5-10.1); Potassium 3.5 mmol/L (3.5-5.1)
[2020-12-06 08:30] VITALS: BP 106/75
[2020-12-06] MEDS: ACETAMINOPHEN 325 MG TAB PO PRN ×2 (08:59→15:22)
[2020-12-06] MEDS: MEROPENEM 500MG IVPB 50 ML IV SCH ×2 (09:00→22:02)
[2020-12-06] MEDS: SODIUM BICARBONATE 650 MG TAB PO SCH ×2 (09:00→22:02)
[2020-12-06] MEDS: amLODIPine BESYLATE 5 MG TAB PO SCH (09:01)
[2020-12-06] MEDS: FAMOTIDINE 20 MG TAB PO SCH (09:01)
[2020-12-06] MEDS: SODIUM BICARBONATE 50ML VIAL 75 ML in SOD CHL 0.45% 1,000 ML IV SCH (12:45)
[2020-12-06 12:52] LABS: Basophils # (auto) 0.2 10 ^3/uL (0-0.2); Basophils % (auto) 1.5 % (0.0-2.0); Eosinophils # (auto) 0.3 10 ^3/uL (0-0.8); Eosinophils % (auto) 2.4 % (0.0-7.0); Hematocrit 33.3 % (36.0-46.0); Hemoglobin 10.9 g/dL (12.2-16.2); Lymphocytes % (auto) 16.3 % (10.0-50.0); Mean Corpuscular Hemoglobin 29.7 pg (28.0-32.0); Mean Corpuscular Hgb Conc. 32.6 g/dL (32.0-36.0); Mean Corpuscular Volume 91.2 fL (80.0-100.0); Monocytes # (auto) 0.9 10 ^3/uL (0-1.3); Monocytes % (auto) 7.2 % (0.0-12.0); Neutrophils # (auto) 8.9 10 ^3/uL (1.6-8.6); Neutrophils % (auto) 72.6 % (37.0-80.0); Nucleated Red Blood Cells % 0.1 %; Red Blood Cells 3.65 10^6/uL (4.0-5.20); Red Cell Distribution Width 18.3 % (11.8-14.3); White Blood Cell 12.2 10^3/uL (4.4-10.8)
[2020-12-06 16:44] VITALS: BP 109/79
[2020-12-06 22:00] VITALS: BP 119/71
[2020-12-07 05:00] VITALS: BP 125/80
[2020-12-07] MEDS: MORPHINE SULFATE 4 MG/ML SYR/VIAL IV PRN ×3 (05:04→20:33)
[2020-12-07 09:00] VITALS: BP 105/67
[2020-12-07] MEDS: SODIUM BICARBONATE 650 MG TAB PO SCH ×2 (09:31→20:32)
[2020-12-07] MEDS: FAMOTIDINE 20 MG TAB PO SCH (09:32)
[2020-12-07] MEDS: amLODIPine BESYLATE 5 MG TAB PO SCH (09:32)
[2020-12-07] MEDS: MEROPENEM 500MG IVPB 50 ML IV SCH ×2 (09:32→20:32)
[2020-12-07 11:59] LABS: Basophils # (auto) 0.1 10 ^3/uL (0-0.2); Basophils % (auto) 1.3 % (0.0-2.0); Eosinophils # (auto) 0.2 10 ^3/uL (0-0.8); Eosinophils % (auto) 2.4 % (0.0-7.0); Hematocrit 35.2 % (36.0-46.0); Hemoglobin 11.7 g/dL (12.2-16.2); Lymphocytes # (auto) 1.6 10 ^3/uL (0.4-5.4); Lymphocytes % (auto) 15.4 % (10.0-50.0); Mean Corpuscular Hemoglobin 30.2 pg (28.0-32.0); Mean Corpuscular Hgb Conc. 33.1 g/dL (32.0-36.0); Mean Corpuscular Volume 91.2 fL (80.0-100.0); Monocytes # (auto) 0.8 10 ^3/uL (0-1.3); Monocytes % (auto) 7.6 % (0.0-12.0); Neutrophils # (auto) 7.6 10 ^3/uL (1.6-8.6); Neutrophils % (auto) 73.3 % (37.0-80.0); Nucleated Red Blood Cells % 0.1 %; Red Blood Cells 3.86 10^6/uL (4.0-5.20); White Blood Cell 10.4 10^3/uL (4.4-10.8)
[2020-12-07 12:16] LABS: Albumin 2.6 g/dL (3.4-5.0); Calcium 8.4 mg/dL (8.5-10.1); Potassium 3.9 mmol/L (3.5-5.1)
[2020-12-07] MEDS: SODIUM BICARBONATE 50ML VIAL 75 ML in SOD CHL 0.45% 1,000 ML IV SCH ×2 (12:21→16:15)
[2020-12-07 12:22] LABS: Bilirubin, Total 0.2 mg/dL (0.2-1.0); Total Protein 7.3 g/dL (6.4-8.2)
[2020-12-07 13:00] VITALS: BP 119/80
[2020-12-07 17:20] VITALS: BP 104/72
[2020-12-07 22:00] VITALS: BP 124/70
[2020-12-08] MEDS: MORPHINE SULFATE 4 MG/ML SYR/VIAL IV PRN ×3 (02:56→14:30)
[2020-12-08 05:00] VITALS: BP 107/67
[2020-12-08] MEDS: SODIUM BICARBONATE 50ML VIAL 75 ML in SOD CHL 0.45% 1,000 ML IV SCH ×2 (05:12→14:07)
[2020-12-08] MEDS: MEROPENEM 500MG IVPB 50 ML IV SCH (08:26)
[2020-12-08] MEDS: FAMOTIDINE 20 MG TAB PO SCH (08:28)
[2020-12-08] MEDS: amLODIPine BESYLATE 5 MG TAB PO SCH (08:28)
[2020-12-08] MEDS: SODIUM BICARBONATE 650 MG TAB PO SCH (08:28)
[2020-12-08 08:36] VITALS: BP 103/59
[2020-12-08 11:43] LABS: Basophils # (auto) 0.1 10 ^3/uL (0-0.2); Basophils % (auto) 0.7 % (0.0-2.0); Eosinophils # (auto) 0.3 10 ^3/uL (0-0.8); Eosinophils % (auto) 2.8 % (0.0-7.0); Hematocrit 33.1 % (36.0-46.0); Hemoglobin 11.1 g/dL (12.2-16.2); Lymphocytes # (auto) 1.9 10 ^3/uL (0.4-5.4); Lymphocytes % (auto) 19.1 % (10.0-50.0); Mean Corpuscular Hemoglobin 30.1 pg (28.0-32.0); Mean Corpuscular Hgb Conc. 33.5 g/dL (32.0-36.0); Mean Corpuscular Volume 90.1 fL (80.0-100.0); Monocytes % (auto) 10.1 % (0.0-12.0); Neutrophils # (auto) 6.8 10 ^3/uL (1.6-8.6); Neutrophils % (auto) 67.3 % (37.0-80.0); Red Blood Cells 3.67 10^6/uL (4.0-5.20); Red Cell Distribution Width 18.1 % (11.8-14.3); White Blood Cell 10.1 10^3/uL (4.4-10.8)
[2020-12-08 12:11] LABS: Potassium 3.9 mmol/L (3.5-5.1)
[2020-12-08 12:18] LABS: Albumin 2.6 g/dL (3.4-5.0); BUN/Creatinine Ratio 16.3; Bilirubin, Total 0.2 mg/dL (0.2-1.0); Calcium 8.1 mg/dL (8.5-10.1); Magnesium 2.4 mg/dL (1.6-2.6); Total Protein 6.9 g/dL (6.4-8.2)
[2020-12-08 12:36] VITALS: BP 106/67
[2020-12-08 16:45] VITALS: BP 125/71
== END 2020-12-08 17:00 | disposition left against medical advice (07) | DRG 720 ==
LOC: ER 16:00 → EDBD 16:00 → EDUNIT# 16:00 → TELE 18:13 → TELE-WESTW 21:38
PROVIDERS: ADMIT Nurse Practitioner; ATTEND Nurse Practitioner
PROC: 05HA33Z Insertion of Infusion Device into Left Brachial Vein, Percutaneous Approach (ICD-10-PCS; principal; 2020-12-08)
PROC: B54NZZA Ultrasonography of Left Upper Extremity Veins, Guidance (ICD-10-PCS; 2020-12-08)
DX: A41.9 Sepsis, unspecified organism (principal); I42.9 Cardiomyopathy, unspecified; N17.9 Acute kidney failure, unspecified; I13.0 Hypertensive heart and chronic kidney disease with heart failure and stage 1 through stage 4 chronic kidney disease, or unspecified chronic kidney disease; E11.65 Type 2 diabetes mellitus with hyperglycemia; N18.4 Chronic kidney disease, stage 4 (severe); I50.9 Heart failure, unspecified; E44.1 Mild protein-calorie malnutrition; E83.59 Other disorders of calcium metabolism; T83.022A Displacement of nephrostomy catheter, initial encounter; Z20.822 Contact with and (suspected) exposure to COVID-19; B19.20 Unspecified viral hepatitis C without hepatic coma; Z53.29 Procedure and treatment not carried out because of patient's decision for other reasons; F17.210 Nicotine dependence, cigarettes, uncomplicated; N13.6 Pyonephrosis; F32.9 Major depressive disorder, single episode, unspecified; F41.9 Anxiety disorder, unspecified; G43.909 Migraine, unspecified, not intractable, without status migrainosus; Z79.51 Long term (current) use of inhaled steroids; Z82.49 Family history of ischemic heart disease and other diseases of the circulatory system; Z83.3 Family history of diabetes mellitus; Z86.14 Personal history of Methicillin resistant Staphylococcus aureus infection; Z87.440 Personal history of urinary (tract) infections; Z87.442 Personal history of urinary calculi; Z90.5 Acquired absence of kidney; Z93.6 Other artificial openings of urinary tract status; Z88.5 Allergy status to narcotic agent; Y73.2 Prosthetic and other implants, materials and accessory gastroenterology and urology devices associated with adverse incidents
CPT/HCPCS: 36415; 71045; 74176; 80048; 80053; 81001; 83605; 83735; 83880; 84484; 85025; 87040; 87086; 87426; 93306; 96365; G0378; J0696; J1885; J2185

== ENCOUNTER 2022-03-28 00:05 | Inpatient (IN) | payer MEDICAID ==
[~2022-03-28] VITALS: Ht 162.6 cm; Wt 77.0 kg
[2022-03-28 01:08] LABS: Hemoglobin 11.9 g/dL (12.2-16.2); Mean Corpuscular Hemoglobin 31.2 pg (28.0-32.0); Mean Corpuscular Hgb Conc. 32.2 g/dL (32.0-36.0); Mean Corpuscular Volume 96.7 fL (80.0-100.0); Red Blood Cells 3.83 10^6/uL (4.0-5.20); Red Cell Distribution Width 14.8 % (11.8-14.3); White Blood Cell 7.8 10^3/uL (4.4-10.8)
[2022-03-28 01:14] LABS: Basophils % (manual) 0 (0.0-2.0); Blast Cells 0; Promyelocytes % 0; Reactive Lymphocytes 0
[2022-03-28 01:21] LABS: Albumin 3.2 g/dL (3.4-5.0); Potassium 4.2 mmol/L (3.5-5.1)
[2022-03-28 01:23] LABS: BUN/Creatinine Ratio 9.6
[2022-03-28 01:25] LABS: Bilirubin, Total 0.3 mg/dL (0.2-1.0); Total Protein 8.1 g/dL (6.4-8.2)
[2022-03-28 01:46] LABS: Band Neutrophils % (manual) 10; Eosinophils % (manual) 1 (0-7); Lymphocytes % (manual) 19 (10.0-50.0); Metamyelocytes % 1; Monocytes % (manual) 5 (0-12); Myelocytes % 2
[2022-03-28] MEDS ORDERED: ONDANSETRON HCL 4 MG/2 ML VIAL IV ONE (04:45)
[2022-03-28] MEDS ORDERED: HYDROmorphone HCL 2 MG/ML VL/or syr IV ONE (04:45)
[2022-03-28] MEDS ORDERED: MORPHINE SULFATE INJ 2 MG/ml SYRG IV PRN (06:45)
[2022-03-28] MEDS ORDERED: DOCUSATE SOD 100 MG CAP PO PRN (06:45)
[2022-03-28] MEDS ORDERED: ACETAMINOPHEN 325 MG TAB PO PRN (06:45)
[2022-03-28] MEDS ORDERED: NITROGLYCERIN 0.4 MG SL TAB SL PRN (06:45)
[2022-03-28] MEDS ORDERED: ONDANSETRON HCL 4 MG/2 ML VIAL IV PRN (06:45)
[2022-03-28] MEDS ORDERED: HYDROcodone-ACET 5/325MG TAB PO PRN (06:45)
[2022-03-28 07:22] LABS: Hematocrit 37.6 % (36.0-46.0); Hemoglobin 11.8 g/dL (12.2-16.2); Mean Corpuscular Hemoglobin 30.2 pg (28.0-32.0); Mean Corpuscular Hgb Conc. 31.3 g/dL (32.0-36.0); Mean Corpuscular Volume 96.7 fL (80.0-100.0); Red Blood Cells 3.89 10^6/uL (4.0-5.20); Red Cell Distribution Width 14.5 % (11.8-14.3); White Blood Cell 7.5 10^3/uL (4.4-10.8)
[2022-03-28 07:32] LABS: Basophils % (manual) 0 (0.0-2.0); Blast Cells 0; Eosinophils % (manual) 0 (0-7); Promyelocytes % 0; Reactive Lymphocytes 0
[2022-03-28 07:58] LABS: Band Neutrophils % (manual) 8; Lymphocytes % (manual) 20 (10.0-50.0); Metamyelocytes % 3; Monocytes % (manual) 6 (0-12); Myelocytes % 2
[2022-03-28 08:35] VITALS: BP 106/67
[2022-03-28 08:51] LABS: BUN/Creatinine Ratio 10.1; Calcium 8.3 mg/dL (8.5-10.1); Potassium 5.1 mmol/L (3.5-5.1)
[2022-03-28] MEDS ORDERED: ZINC SULFATE 220mg CAP or TAB PO SCH (10:00)
[2022-03-28] MEDS ORDERED: CHOLECALCIFEROL (VITD3) 2,000 UNIT CAP/TAB PO SCH (10:00)
[2022-03-28] MEDS ORDERED: ASCORBIC ACID 500 MG TAB PO SCH (10:00)
[2022-03-28] MEDS ORDERED: PANTOPRAZOLE 40 MG TAB PO SCH (10:00)
[2022-03-28] MEDS ORDERED: AZITHROMYCIN 500MG/ 250ML 250 ML IV SCH (10:00)
[2022-03-28] MEDS: ALBUTEROL SULF HFA 90MCG INH 200DOSE IN SCH ×2 (14:30→18:33)
[2022-03-28 15:45] LABS: Alcohol, Urine < 3.0 mg/dL (0-10); Amphetamine Screen, Urine POSITIVE (NEGATIVE); Barbiturate Scree,Urine NEGATIVE (NEGATIVE); Benzodiazephine Screen, Urine NEGATIVE (NEGATIVE); Cannabinoid Screen, Urine POSITIVE (NEGATIVE); Cocaine Screen, Urine NEGATIVE (NEGATIVE); Opiate Scree,Urine NEGATIVE (NEGATIVE); Phencyclidine Screen, Urine NEGATIVE (NEGATIVE)
[2022-03-29 04:00] VITALS: BP 103/69
[2022-03-29] MEDS: ALBUTEROL SULF HFA 90MCG INH 200DOSE IN SCH (05:55)
== END 2022-03-29 07:25 | disposition left against medical advice (07) | DRG 812 ==
LOC: ER 00:05 → EDBD 00:05 → EDUNIT# 00:05 → OVERFLOW 06:38
PROVIDERS: ADMIT Internal Medicine; ATTEND Internal Medicine
DX: T50.991A Poisoning by other drugs, medicaments and biological substances, accidental (unintentional), initial encounter (principal); J96.01 Acute respiratory failure with hypoxia; J12.82 Pneumonia due to coronavirus disease 2019; E11.22 Type 2 diabetes mellitus with diabetic chronic kidney disease; U07.1 COVID-19; Z20.822 Contact with and (suspected) exposure to COVID-19; I50.9 Heart failure, unspecified; F12.10 Cannabis abuse, uncomplicated; F17.210 Nicotine dependence, cigarettes, uncomplicated; I13.0 Hypertensive heart and chronic kidney disease with heart failure and stage 1 through stage 4 chronic kidney disease, or unspecified chronic kidney disease; Z53.29 Procedure and treatment not carried out because of patient's decision for other reasons; N18.9 Chronic kidney disease, unspecified; N20.0 Calculus of kidney; N39.0 Urinary tract infection, site not specified; Z82.49 Family history of ischemic heart disease and other diseases of the circulatory system; Z83.3 Family history of diabetes mellitus; Z87.442 Personal history of urinary calculi; Z90.5 Acquired absence of kidney; I25.2 Old myocardial infarction; Y92.89 Other specified places as the place of occurrence of the external cause; Z71.6 Tobacco abuse counseling
CPT/HCPCS: 36415; 70450; 71045; 74176; 80048; 80053; 80307; 84443; 84484; 85007; 85027; 93005; 94640; 96365; 96375; G0378; J2405

== ENCOUNTER 2022-10-14 16:00 | Emergency (ER) | payer MEDICAID ==
[~2022-10-14] VITALS: Ht 157.5 cm; Wt 74.0 kg
[2022-10-14 17:22] VITALS: BP 150/65
[2022-10-14] MEDS ORDERED: HYDROcodone-ACET 10/325MG TAB PO ONE (19:00)
[2022-10-14] MEDS ORDERED: ONDANSETRON ODT 4 MG TAB PO ONE (19:00)
[2022-10-14] MEDS ORDERED: ONDA-144 PO (19:52)
[2022-10-14] MEDS ORDERED: HYDR-4902 PO (19:52)
== END 2022-10-14 22:01 | disposition home or self-care (01) ==
LOC: ER 16:03
DX: S62.617A Displaced fracture of proximal phalanx of left little finger, initial encounter for closed fracture (principal); F17.210 Nicotine dependence, cigarettes, uncomplicated; F12.90 Cannabis use, unspecified, uncomplicated; W00.2XXA Other fall from one level to another due to ice and snow, initial encounter; Y93.89 Activity, other specified; Y92.89 Other specified places as the place of occurrence of the external cause; Y99.8 Other external cause status
CPT/HCPCS: 26770; 73130; 99284; Q0162